=== PATIENT | female | born 1995 | race Caucasian/White ===

== ENCOUNTER 2017-07-29 12:30 | Emergency (ER) | payer BC ==
[2017-07-29 12:58] VITALS: BP 120/68
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
== END 2017-07-29 13:21 | disposition home or self-care (01) ==
LOC: UCEAST 12:30
DX: S29.012A Strain of muscle and tendon of back wall of thorax, initial encounter (principal); Z88.0 Allergy status to penicillin; Z87.891 Personal history of nicotine dependence; V89.2XXA Person injured in unspecified motor-vehicle accident, traffic, initial encounter; Y92.9 Unspecified place or not applicable; S39.012A Strain of muscle, fascia and tendon of lower back, initial encounter
CPT/HCPCS: 99211; G0463